=== PATIENT | female | born 1980 | race Caucasian/White ===

== ENCOUNTER → 2018-01-26 17:24 | Outpatient (CLI) | payer BC ==
[2015-04-01 17:19] VITALS: BMI 23.7
[~2018-01-26 17:24] MED LIST: CARAFATE1 G/10 ML PO; MAG-OX 400 MG400 MG PO; PEPCID20 MG PO; PRENAVITE1 TAB PO; SLOW RELEASE I160 MG
== END | disposition home or self-care (01) ==
LOC: D.MAMMO 16:15
DX: Z12.31 Encounter for screening mammogram for malignant neoplasm of breast (principal)

== ENCOUNTER → 2018-11-25 12:59 | Outpatient (CLI) | payer BC ==
[2015-04-01 17:19] VITALS: BMI 23.7
== END | disposition home or self-care (01) ==
LOC: D.RT 12:59
PROVIDERS: ATTEND Family Medicine
DX: J45.909 Unspecified asthma, uncomplicated (principal)

== ENCOUNTER → 2019-01-20 09:53 | Outpatient (CLI) | payer BC ==
[2015-04-01 17:19] VITALS: BMI 23.7
[~2019-01-20 09:53] MED LIST changes: +CLARITIN 10 MG10 MG PO; +FAMOTIDINE10 MG PO; +NORVASC10 MG PO
== END | disposition home or self-care (01) ==
LOC: D.CT 09:53
PROVIDERS: ATTEND Internal Medicine Pulmonary Disease
DX: R94.2 Abnormal results of pulmonary function studies (principal)

== ENCOUNTER → 2019-01-24 17:28 | Outpatient (CLI) | payer BC ==
[2015-04-01 17:19] VITALS: BMI 23.7
[2019-01-25 13:15] LABS: IMMUNOGLOBULIN A 167 mg/dL (87-352); IMMUNOGLOBULIN G 1063 mg/dL (700-1600); IMMUNOGLOBULIN M 253 mg/dL (26-217)
[2019-01-25 15:14] LABS: ANA REFLEX - DIRECT Negative (Negative)
[2019-01-29 15:08] LABS: IMMUNOGLOBULIN E 19 IU/mL (6-495)
== END | disposition home or self-care (01) ==
LOC: D.LABREF 17:28
PROVIDERS: ATTEND Internal Medicine Pulmonary Disease
DX: J98.11 Atelectasis (principal)

== ENCOUNTER 2019-01-27 06:14 | Day surgery (SDC) | payer BC ==
[~2019-01-27] VITALS: Ht 167.6 cm; Wt 75.0 kg
[~2019-01-27 06:14] MED LIST changes: -CLARITIN 10 MG10 MG PO; -FAMOTIDINE10 MG PO; -NORVASC10 MG PO
[2019-01-27 06:31] LABS: BASOPHILS 0.3 % (0-2); EOSINOPHILS 2.6 % (0-7); HEMATOCRIT 38.3 % (36.0-48.0); HEMOGLOBIN 12.9 g/dL (12-16); IMMATURE GRANULOCYTES 0.2 % (0-5); LYMPHOCYTES 27.3 % (15-50); MCH 29.2 pg (26.0-34.0); MCHC 33.7 g/dL (31.0-37.0); MCV 86.7 fL (80.0-100.0); MEAN PLATELET VOLUME 8.2 fL (7.4-10.4); MONOCYTES 5.5 % (2-11); NEUTROPHILS 64.1 % (40-80); PLATELET COUNT 260 10x3/uL (130-400); RBC 4.42 10x6/uL (4.00-5.40); RDW 13.5 % (11.5-14.5); WBC 6.6 10x3/uL (4.8-10.8)
[2019-01-27 06:47] LABS: INR 1.02 (0.85-1.17); PROTIME 12.9 SECONDS (11.6-15.0)
[2019-01-27 06:48] LABS: APTT 34.6 SECONDS (22.8-39.4)
[2019-01-27] MEDS ORDERED: NORVASC10 MG PO (07:23)
[2019-01-27] MEDS ORDERED: CLARITIN 10 MG10 MG PO (07:24)
[2019-01-27] MEDS ORDERED: FAMOTIDINE10 MG PO (07:24)
[2019-01-27 07:33] VITALS: BP 124/85; Ht 167.6 cm; Wt 75.0 kg
[2019-01-27 08:23] LABS: HCG SERUM NEGATIVE (NEGATIVE)
--- NOTE | 2019-01-27 10:46 | NUR ---
0920 VITAL SIGNS ARE BEING DOCUMENTED ON POST PROCEDURE CHECKLIST AND IN PAPER CHART.
--- NOTE | 2019-01-27 13:03 | NUR ---
1235 IV DC'D. CATHETER INTACT. NO BLEEDING AT SITE. BANDAID APPLIED.
[2019-01-28 17:08] LABS: ACID FAST SMEAR Negative (()); AFB SPECIMEN PROCESSING Concentration (())
[2019-01-30 10:10] LABS: FUNGUS STAIN Final report (())
== END 2019-01-27 12:55 | disposition home or self-care (01) ==
LOC: D.OPS 06:14
PROVIDERS: ATTEND Internal Medicine Pulmonary Disease
DX: J98.11 Atelectasis (principal); Z01.812 Encounter for preprocedural laboratory examination